=== PATIENT | male | born 1980 | race African-American/Black ===

== ENCOUNTER 2023-02-02 10:58 | Observation (INO) | payer OTHER ==
[2023-02-02] MEDS ORDERED: KETOROLAC TROMETHAMINE 30 MG/1 ML VIAL IM ONE (11:47)
[2023-02-02] MEDS ORDERED: LIDOCAINE 5% TOPICAL PATCH TP ONE (11:48)
[2023-02-02] MEDS ORDERED: LIDOCAINE 5% TOPICAL PATCH ONE (11:51)
[2023-02-02] MEDS ORDERED: KETOROLAC TROMETHAMINE 30 MG/1 ML VIAL ONE (11:51)
[2023-02-02] MEDS ORDERED: diazePAM 5 MG TABLET PO ONE (12:36)
[2023-02-02] MEDS ORDERED: diazePAM 5 MG TABLET ONE (12:45)
[2023-02-02] MEDS ORDERED: morphine CARPU-JECT 4 MG/1 ML DISP.SYRIN IVPUSH ONE ×2 (14:43→18:02)
[2023-02-02] MEDS ORDERED: morphine SULFATE 4 MG/ML VIAL ONE ×2 (14:51→18:04)
[2023-02-02 15:30] LABS: BASO % 0.4 % (0-2.0); HEMATOCRIT 46.4 % (35.4-49); HEMOGLOBIN 15.5 GM/dL (11.7-16.9); LYMPH % 26.6 % (8-40); MCH 27.6 pg (25.7-33.7); MCHC 33.5 g/dl (32.0-35.9); MEAN CELL VOLUME 82.6 fl (80-96); MEAN PLT VOLUME 8.7 fl (7.5-11.1); MONO % 6.5 % (3.8-10.2); NEUT % 65.5 % (42.8-82.8); PLATELET COUNT 165 10^3/uL (134-434); RBC 5.62 M/mm3 (4.00-5.60); RDW 17.4 % (11.9-15.9); WHITE BLOOD COUNT 6.2 K/mm3 (4.0-10.0)
[2023-02-02 15:48] LABS: CALCIUM 9.3 mg/dL (8.5-10.1)
[2023-02-02 15:50] LABS: ALBUMIN 3.7 g/dl (3.4-5.0); BLOOD UREA NITROGEN 11.3 mg/dL (7-18)
[2023-02-02 15:52] LABS: CREATININE 1.2 mg/dL (0.55-1.3)
[2023-02-02 15:53] LABS: TOT PROT 7.5 g/dl (6.4-8.2)
[2023-02-02 15:54] LABS: BILIRUBIN,TOTAL 0.6 mg/dL (0.2-1)
[2023-02-02 23:06] VITALS: BMI 52.2
[2023-02-03] MEDS ORDERED: morphine SULFATE 4 MG/ML VIAL IVPUSH PRN (00:34)
[2023-02-03] MEDS: GABAPENTIN 300 MG CAPSULE PO SCH ×3 (06:09→22:15)
[2023-02-03] MEDS: BACLOFEN 10 MG TABLET (FP) PO SCH ×3 (06:18→22:15)
[2023-02-03] MEDS ORDERED: oxyCODONE HCL 5 MG TABLET PO PRN (11:16)
[2023-02-03] MEDS ORDERED: INSULIN (NOVOLOG) ASPART 100 UNITS/ML 10ML VIAL ONE (11:47)
[2023-02-03] MEDS: ACETAMINOPHEN 325 MG TABLET (FP) PO SCH ×2 (12:25→17:24)
[2023-02-03] MEDS: oxyCODONE HCL 5 MG TABLET PO PRN (12:26)
[2023-02-03] MEDS: LIDOCAINE 5% TOPICAL PATCH TP SCH (12:32)
[2023-02-03] MEDS ORDERED: methylPREDNISolone 4 MG TABLET PO ONE (15:06)
[2023-02-03] MEDS: DOCUSATE SODIUM 100 MG CAPSULE (FP) PO SCH (22:15)
[2023-02-03] MEDS: LIDOCAINE PATCH REMOVAL MC SCH (22:15)
[2023-02-04] MEDS: ACETAMINOPHEN 325 MG TABLET (FP) PO SCH ×4 (00:40→17:25)
[2023-02-04] MEDS: BACLOFEN 10 MG TABLET (FP) PO SCH ×3 (05:52→21:49)
[2023-02-04] MEDS: GABAPENTIN 300 MG CAPSULE PO SCH ×3 (05:52→21:19)
[2023-02-04 08:15] LABS: BASO % 0.4 % (0-2.0); EOS % 0.8 % (0-4.5); HEMATOCRIT 47.7 % (35.4-49); HEMOGLOBIN 16.1 GM/dL (11.7-16.9); LYMPH % 26.1 % (8-40); MCHC 33.7 g/dl (32.0-35.9); MEAN CELL VOLUME 83.1 fl (80-96); MONO % 7.3 % (3.8-10.2); NEUT % 65.4 % (42.8-82.8); PLATELET COUNT 180 10^3/uL (134-434); RBC 5.74 M/mm3 (4.00-5.60); RDW 17.1 % (11.9-15.9); WHITE BLOOD COUNT 8.1 K/mm3 (4.0-10.0)
[2023-02-04 08:26] LABS: POTASSIUM 4.3 mmol/L (3.5-5.1)
[2023-02-04 08:41] LABS: ALBUMIN 3.8 g/dl (3.4-5.0); BLOOD UREA NITROGEN 14.1 mg/dL (7-18); CALCIUM 9.5 mg/dL (8.5-10.1)
[2023-02-04 08:42] LABS: CREATININE 1.1 mg/dL (0.55-1.3)
[2023-02-04 08:44] LABS: BILIRUBIN,TOTAL 0.5 mg/dL (0.2-1); TOT PROT 7.8 g/dl (6.4-8.2)
[2023-02-04] MEDS: LIDOCAINE 5% TOPICAL PATCH TP SCH (10:04)
[2023-02-04] MEDS ORDERED: LIDOCAINE HCL 5% TOP OINTMENT 50 GM TUBE TP ONE (10:35)
[2023-02-04] MEDS: LIDOCAINE PATCH REMOVAL MC SCH (21:20)
[2023-02-04] MEDS: DOCUSATE SODIUM 100 MG CAPSULE (FP) PO SCH (21:20)
[2023-02-04] MEDS: ENOXAPARIN NA (PORCINE) 40 MG/0.4 ML DISP.SYRIN SQ SCH (21:20)
[2023-02-05] MEDS: ACETAMINOPHEN 325 MG TABLET (FP) PO SCH ×2 (00:26→05:28)
[2023-02-05] MEDS: GABAPENTIN 300 MG CAPSULE PO SCH ×3 (05:28→21:19)
[2023-02-05] MEDS: BACLOFEN 10 MG TABLET (FP) PO SCH ×3 (05:28→21:19)
[2023-02-05] MEDS: oxyCODONE HCL 5 MG TABLET PO PRN ×3 (09:59→22:35)
[2023-02-05] MEDS: ENOXAPARIN NA (PORCINE) 40 MG/0.4 ML DISP.SYRIN SQ SCH (10:00)
[2023-02-05] MEDS: LIDOCAINE 5% TOPICAL PATCH TP SCH (10:00)
[2023-02-05] MEDS ORDERED: predniSONE 20 MG TABLET (UD) PO ONE (12:15)
[2023-02-05] MEDS: DOCUSATE SODIUM 100 MG CAPSULE (FP) PO SCH (21:19)
[2023-02-05] MEDS: LIDOCAINE PATCH REMOVAL MC SCH (21:20)
[2023-02-06] MEDS: GABAPENTIN 300 MG CAPSULE PO SCH ×3 (06:59→21:23)
[2023-02-06] MEDS: BACLOFEN 10 MG TABLET (FP) PO SCH ×3 (06:59→21:23)
[2023-02-06] MEDS: ENOXAPARIN NA (PORCINE) 40 MG/0.4 ML DISP.SYRIN SQ SCH (09:53)
[2023-02-06] MEDS: LIDOCAINE 5% TOPICAL PATCH TP SCH (09:53)
[2023-02-06] MEDS: DOCUSATE SODIUM 100 MG CAPSULE (FP) PO SCH (21:23)
[2023-02-06] MEDS: LIDOCAINE PATCH REMOVAL MC SCH (21:24)
[2023-02-06 22:25] VITALS: RESP 18
[2023-02-07] MEDS ORDERED: ONDANSETRON *ODT* 4 MG TABLET SL SCH
[2023-02-07] MEDS: GABAPENTIN 300 MG CAPSULE PO SCH (06:43)
[2023-02-07] MEDS: BACLOFEN 10 MG TABLET (FP) PO SCH (07:00)
[2023-02-07] MEDS: LIDOCAINE 5% TOPICAL PATCH TP SCH (09:40)
[2023-02-07] MEDS: ENOXAPARIN NA (PORCINE) 40 MG/0.4 ML DISP.SYRIN SQ SCH (09:40)
[2023-02-07 11:43] VITALS: BP 124/94; PULSE 100; TEMP 98.4
== END 2023-02-07 12:40 | disposition home or self-care (01) ==
LOC: JER 10:58 → JERBED 20:02 → J7W 22:20
PROVIDERS: ADMIT Internal Medicine; ATTEND Nurse Practitioner Family
PROC: 3E023GC Introduction of Other Therapeutic Substance into Muscle, Percutaneous Approach (ICD-10-PCS; principal; 2023-02-02)
PROC: 3E0233Z Introduction of Anti-inflammatory into Muscle, Percutaneous Approach (ICD-10-PCS; 2023-02-02)
PROC: 3E033NZ Introduction of Analgesics, Hypnotics, Sedatives into Peripheral Vein, Percutaneous Approach (ICD-10-PCS; 2023-02-02)
DX: M54.42 Lumbago with sciatica, left side (principal); E66.01 Morbid (severe) obesity due to excess calories; Z68.43 Body mass index [BMI] 50.0-59.9, adult; Z29.8 Encounter for other specified prophylactic measures; M25.562 Pain in left knee; M25.462 Effusion, left knee
CPT/HCPCS: 0241U-QW; 36415; 72100-TC-FY; 72131-TC; 73502-TC-LT-FY; 73502-TC-RT-FY; 73564-TC-LT-FY; 73564-TC-RT-FY; 80053; 84550; 85025; 86140; 96372; 96374; 96375; 96376; 97116-GP; 97161-GP; 99285-25; G0378; J0475; Q0162

== ENCOUNTER 2023-03-28 04:34 | Day surgery (SDC) | payer OTHER ==
[2023-03-26 15:45] VITALS: BMI 46.0
[2023-03-28] MEDS ORDERED: LIDOCAINE HCL/PF 1% SDV 5ML VIAL ONE (07:21)
[2023-03-28] MEDS ORDERED: DEXAMETHASONE SOD PHOSPHATE 10 MG/1 ML VIAL ONE (07:21)
[2023-03-28] MEDS ORDERED: IOHEXOL 180 MG/1 ML ML IJ ONE (09:00)
[2023-03-28] MEDS ORDERED: LIDOCAINE HCL 1%, 10 MG/ML (20ML VIAL) NR ONE (09:00)
[2023-03-28] MEDS ORDERED: DEXAMETHASONE SOD PHOSPHATE 10 MG/1 ML VIAL IM ONE (09:00)
[2023-03-28 09:38] VITALS: RESP 18
[2023-03-28 09:59] VITALS: BP 134/81; PULSE 89; TEMP 97.3
[2023-03-28] MEDS ORDERED: ACETAMINOPHEN 500 MG TABLET (FP) PO PRN (12:03)
== END 2023-03-28 10:05 | disposition home or self-care (01) ==
LOC: JASU-SURG 04:34
PROVIDERS: ATTEND Pain Medicine Pain Medicine
PROC: 3E0R3BZ Introduction of Anesthetic Agent into Spinal Canal, Percutaneous Approach (ICD-10-PCS; 2023-03-28)
PROC: 3E0R33Z Introduction of Anti-inflammatory into Spinal Canal, Percutaneous Approach (ICD-10-PCS; principal; 2023-03-28 08:30)
DX: M54.16 Radiculopathy, lumbar region (principal)
CPT/HCPCS: 76000-TC-FY; J1100